=== PATIENT | female | born 1970 | race African-American/Black ===

== ENCOUNTER 2018-04-18 11:46 | Inpatient (IN) | payer OTHER ==
[2018-04-18] MEDS: ONDANSETRON (ODT) 4 MG TAB ODT (13:19)
[2018-04-18 13:23] LABS: URINE BLOOD (Dip) POC 3+ (NEGATIVE); URINE GLUCOSE (Dip) POC >=1.0% (NEGATIVE); URINE KETONES (Dip) POC Negative (NEGATIVE); URINE LEUKOCYTE EST (Dip) POC Negative (NEGATIVE); URINE NITRITE (Dip) POC Negative (NEGATIVE); URINE TOTAL PROTEIN POC Negative (NEGATIVE)
[2018-04-18 13:28] LABS: ADD MAN DIFF? NO
[2018-04-18 13:38] LABS: WHITE BLOOD COUNT 8.6 10^3/ul (4.8-10.8)
[2018-04-18 13:38] LABS: BASOPHILS % 0.2 % (0.0-2.0); EOSINOPHILS % 0.2 % (0.0-7.0); HEMATOCRIT 45.8 % (37.0-47.0); HEMOGLOBIN 15.5 g/dl (12.0-16.0); LYMPHOCYTES # 2.4 10^3/ul (0.8-2.9); LYMPHOCYTES % 28.3 % (15.0-51.0); MEAN CORPUSCULAR HEMOGLOBIN 27.7 pg (29.0-33.0); MEAN CORPUSCULAR HGB CONC 33.8 g/dl (32.0-37.0); MEAN CORPUSCULAR VOLUME 81.8 fl (82.0-101.0); MEAN PLATELET VOLUME 11.2 fl (7.4-10.4); MONOCYTE # 0.3 10^3/ul (0.3-0.9); MONOCYTES % 3.4 % (0.0-11.0); NEUTROPHIL # 5.8 10^3/ul (1.6-7.5); NEUTROPHILS % 67.8 % (39.0-77.0); PLATELET COUNT 369 10^3/UL (140-415); RED CELL DISTRIBUTION WIDTH 12.9 % (11.5-14.5)
[2018-04-18 13:56] LABS: ALANINE AMINOTRANSFERASE 111 IU/L (13-69); ALBUMIN 4.6 g/dl (3.3-4.9); ALBUMIN/GLOBULIN RATIO 0.97; ALKALINE PHOSPHATASE 200 IU/L (42-121); ANION GAP 23 (8-16); ASPARTATE AMINO TRANSFERASE 70 IU/L (15-46); BILIRUBIN,INDIRECT 0.6 mg/dl (0-1.1); BILIRUBIN,TOTAL 0.6 mg/dl (0.2-1.3); BLOOD UREA NITROGEN 13 mg/dl (7-20); CALCIUM 10.9 mg/dl (8.4-10.2); CARBON DIOXIDE 28 mmol/L (21-31); CHLORIDE 91 mmol/L (97-110); CREATININE 1.03 mg/dl (0.44-1.00); LIPASE 112 U/L (23-300); POTASSIUM 5.3 mmol/L (3.5-5.1); SODIUM 137 mmol/L (135-144); TOTAL PROTEIN 9.3 g/dl (6.1-8.1)
[2018-04-18] MEDS: KETOROLAC 30 MG INJ IM (14:02)
[2018-04-18 14:11] LABS: GLUCOSE 902 mg/dl (70-220)
[2018-04-18] MEDS: SOD CHLORIDE 0.9% 1,000 ML IV ×3 (14:39→20:41)
[2018-04-18] MEDS: INSULIN LISPRO 100 UNIT/ML VIAL SC (16:28)
[2018-04-18 16:50] LABS: UR KETONES (Dip) NEGATIVE (NEGATIVE)
[2018-04-18 17:05] LABS: HEMOGLOBIN A1C 10.2 % (0-5.9)
[2018-04-18 17:07] LABS: ANION GAP 19 (8-16); BLOOD UREA NITROGEN 14 mg/dl (7-20); CALCIUM 9.9 mg/dl (8.4-10.2); CARBON DIOXIDE 29 mmol/L (21-31); CHLORIDE 95 mmol/L (97-110); CREATININE 1.04 mg/dl (0.44-1.00); SODIUM 137 mmol/L (135-144)
[2018-04-18 17:16] LABS: LACTIC ACID 3.5 mmol/L (0.5-2.0)
[2018-04-18 17:16] LABS: GLUCOSE 696 mg/dl (70-220)
[2018-04-18 17:25] LABS: AMYLASE 52 U/L (11-123); LIPASE 106 U/L (23-300); MAGNESIUM 2.1 mg/dl (1.7-2.5)
[2018-04-18 17:25] LABS: PHOSPHORUS 4.2 mg/dl (2.5-4.9)
[2018-04-18] MEDS: CEFEPIME 2GM/50 ML (PMX) 50 ML IVPB (17:34)
[2018-04-18 17:37] LABS: TROPONIN-I < 0.012 ng/ml (0.000-0.120)
[2018-04-18] MEDS: VANCOMYCIN 1 GM (PMX) 250 ML IVPB (17:53)
[2018-04-18] MEDS ORDERED: POTASSIUM CHLORIDE 40 MEQ in SOD CHLORIDE 0.9% 1,000 ML IV ×2 (18:01→18:45)
[2018-04-18] MEDS ORDERED: SODIUM CHLORIDE 23.4% 77 MEQ, POTASSIUM CHLORIDE 30 MEQ in DEXTROSE 10% 1,000 ML IV ×2 (18:01→18:45)
[2018-04-18] MEDS ORDERED: POTASSIUM CHLORIDE 30 MEQ in SOD CHLORIDE 0.9% 1,000 ML IV ×2 (18:01→18:45)
[2018-04-18] MEDS ORDERED: SODIUM CHLORIDE 23.4% 77 MEQ in DEXTROSE 10% 1,000 ML IV ×2 (18:01→18:45)
[2018-04-18] MEDS ORDERED: SODIUM CHLORIDE 23.4% 77 MEQ, POTASSIUM CHLORIDE 40 MEQ in DEXTROSE 10% 1,000 ML IV ×2 (18:01→18:45)
[2018-04-18] MEDS ORDERED: DEXTROSE 50% 50 ML SYRINGE IV ×4 (18:30→19:00)
[2018-04-18] MEDS ORDERED: INSULIN REGULAR, HUMAN 100 UNIT in SOD CHLORIDE 0.9% 100 ML IV ×2 (18:30→19:00)
[2018-04-18] MEDS ORDERED: SOD CHLORIDE 0.9% 1,000 ML IV (18:45)
[2018-04-18] MEDS ORDERED: LORAZEPAM 2 MG INJ IV (19:00)
[2018-04-18] MEDS ORDERED: MAGNESIUM HYDROXIDE 30ML CUP PO (19:00)
[2018-04-18] MEDS ORDERED: ALBUTEROL/IPRATROPIUM (NEB) 3 ML AMP HHN (19:00)
[2018-04-18] MEDS ORDERED: NACL 0.9% 3 ML SYG IV (19:00)
[2018-04-18] MEDS ORDERED: NA PHOSPHATE/BIPHOS 133 ML ENEMA PR (19:00)
[2018-04-18] MEDS: ACCU-CHEK XX ×5 (19:00→23:00)
[2018-04-18] MEDS ORDERED: DOCUSATE SODIUM 100 MG CAP PO (19:00)
[2018-04-18] MEDS ORDERED: ONDANSETRON 4 MG INJ IV (19:00)
[2018-04-18] MEDS ORDERED: NITROGLYCERIN (SL) 0.4 MG TAB SL (19:00)
[2018-04-18] MEDS ORDERED: hydrALAzine 20 MG INJ IV (19:00)
[2018-04-18] MEDS: NA BICARBONATE 8.4% 50 ML SYG IV (19:16)
[2018-04-18] MEDS: CA CHLORIDE 10% 10 ML SYRINGE IV (19:16)
[2018-04-18 20:32] LABS: AADO2 Arterial 14.2 mmHg (7.0-24.0); Allen Test ACCEPTAB; Arterial Base Excess 2.7 mmol/L (-3.0-3); Arterial Blood Gas Oxygen Sat 96.6 mmHG (95.0-98.0); Arterial COHb 0.6 % (0.0-3.0); Arterial Fraction of Oxyhgb 95.8 % (93.0-99.0); Arterial HCO3 26.9 mmol/L (22.0-26.0); Arterial MetHb 0.2 % (0.0-1.5); Arterial Total Hemglobin 14.3 g/dl (12.0-18.0); Arterial pCO2 40.1 mmhg (35-45); MODE ROOM AIR; Site Right Radial
[2018-04-18] MEDS: ALBUTEROL 0.5% (NEB) 2.5 MG/0.5 ML AMP INH (20:36)
[2018-04-18 20:56] LABS: ANION GAP 15 (8-16); BLOOD UREA NITROGEN 12 mg/dl (7-20); CALCIUM 9.2 mg/dl (8.4-10.2); CARBON DIOXIDE 30 mmol/L (21-31); CHLORIDE 98 mmol/L (97-110); CREATININE 0.85 mg/dl (0.44-1.00); PHOSPHORUS 3.8 mg/dl (2.5-4.9); POTASSIUM 4.7 mmol/L (3.5-5.1); SODIUM 138 mmol/L (135-144)
[2018-04-18 21:12] LABS: LACTIC ACID 3.3 mmol/L (0.5-2.0)
[2018-04-18 21:13] LABS: GLUCOSE 458 mg/dl (70-220)
[2018-04-18 21:28] LABS: MODE NASAL CANNULA; MetHgb Venous 0.5 %; Sample Type Blood venous; Site VENOUS LINE; Venous COHb 0.3 %; Venous Fraction OxyHgb 38.1 %; Venous Oxygen Sat 38.4 mmHG (55.0-75.0); Venous Total Hemglobin 13.7 g/dl
[2018-04-18] MEDS: ZOLPIDEM 5 MG TAB PO (22:04)
[2018-04-18 22:06] LABS: ANION GAP 14 (8-16); BLOOD UREA NITROGEN 11 mg/dl (7-20); CARBON DIOXIDE 28 mmol/L (21-31); CHLORIDE 101 mmol/L (97-110); CREATININE 0.87 mg/dl (0.44-1.00); GLUCOSE 393 mg/dl (70-220); PHOSPHORUS 3.8 mg/dl (2.5-4.9); POTASSIUM 4.4 mmol/L (3.5-5.1); SODIUM 139 mmol/L (135-144)
[2018-04-18] MEDS: LACTATED RINGER'S 900 ML IV (22:06)
[2018-04-18] MEDS: INSULIN REGULAR, HUMAN 100 UNIT/1 ML 3ML VIAL IVP (22:37)
[2018-04-18 23:08] LABS: MODE NASAL CANNULA; MetHgb Venous 0.2 %; Sample Type Blood venous; Site VENOUS LINE; Venous COHb 0.4 %; Venous Fraction OxyHgb 72.3 %; Venous Oxygen Sat 72.7 mmHG (55.0-75.0); Venous Total Hemglobin 12.9 g/dl
[2018-04-19 00:28] LABS: ANION GAP 13 (8-16); BLOOD UREA NITROGEN 9 mg/dl (7-20); CALCIUM 8.8 mg/dl (8.4-10.2); CARBON DIOXIDE 28 mmol/L (21-31); CHLORIDE 103 mmol/L (97-110); CREATININE 0.75 mg/dl (0.44-1.00); GLUCOSE 271 mg/dl (70-220); POTASSIUM 3.7 mmol/L (3.5-5.1); SODIUM 140 mmol/L (135-144)
[2018-04-19 00:29] LABS: LACTIC ACID 3.1 mmol/L (0.5-2.0)
[2018-04-19] MEDS: ACCU-CHEK XX ×7 (01:00→04:51)
[2018-04-19 01:38] LABS: MODE NASAL CANNULA; MetHgb Venous 0.2 %; Sample Type Blood venous; Site VENOUS LINE; Venous COHb 0.4 %; Venous Fraction OxyHgb 65.9 %; Venous Oxygen Sat 66.3 mmHG (55.0-75.0); Venous Total Hemglobin 13.2 g/dl
[2018-04-19] MEDS: ACETAMINOPHEN 325 MG TAB PO ×2 (01:53→21:22)
[2018-04-19] MEDS: INSULIN GLARGINE [LANTus] (100 UNITS/ML) SYG SC ×2 (03:02→08:38)
[2018-04-19] MEDS: SOD CHLORIDE 0.9% 1,000 ML IV ×6 (04:07→16:00)
[2018-04-19] MEDS: HEPARIN 5,000 UNIT/0.5 ML VIAL SC ×3 (04:07→21:34)
[2018-04-19] MEDS: morphine 2 MG INJ IV ×3 (04:33→17:45)
[2018-04-19 05:09] LABS: ADD MAN DIFF? NO
[2018-04-19 05:12] LABS: WHITE BLOOD COUNT 10.8 10^3/ul (4.8-10.8)
[2018-04-19 05:12] LABS: BASOPHILS % 0.3 % (0.0-2.0); EOSINOPHILS # 0.1 10^3/ul (0.0-0.5); EOSINOPHILS % 1.3 % (0.0-7.0); HEMATOCRIT 34.5 % (37.0-47.0); HEMOGLOBIN 11.8 g/dl (12.0-16.0); LYMPHOCYTES # 4.4 10^3/ul (0.8-2.9); LYMPHOCYTES % 40.5 % (15.0-51.0); MEAN CORPUSCULAR HEMOGLOBIN 28.2 pg (29.0-33.0); MEAN CORPUSCULAR HGB CONC 34.2 g/dl (32.0-37.0); MEAN CORPUSCULAR VOLUME 82.5 fl (82.0-101.0); MEAN PLATELET VOLUME 11.3 fl (7.4-10.4); MONOCYTE # 0.4 10^3/ul (0.3-0.9); MONOCYTES % 3.5 % (0.0-11.0); NEUTROPHIL # 5.8 10^3/ul (1.6-7.5); PLATELET COUNT 251 10^3/UL (140-415); RED BLOOD COUNT 4.18 10^6/ul (4.20-5.40); RED CELL DISTRIBUTION WIDTH 13.4 % (11.5-14.5)
[2018-04-19 05:31] LABS: CHOLESTEROL 160 mg/dl (100-200)
[2018-04-19 05:31] LABS: CHOL/HDL RATIO 5.5 RATIO; HDL CHOLESTEROL 29 mg/dl (34-88); LDL CHOLESTEROL,CALCULATED 72 mg/dl; TRIGLYCERIDES 295 mg/dl (0-149)
[2018-04-19] MEDS: PANTOPRAZOLE (EC) 40 MG TAB PO (05:33)
[2018-04-19 05:44] LABS: LACTIC ACID 2.6 mmol/L (0.5-2.0)
[2018-04-19 05:46] LABS: ANION GAP 13 (8-16); BLOOD UREA NITROGEN 9 mg/dl (7-20); CALCIUM 8.9 mg/dl (8.4-10.2); CARBON DIOXIDE 28 mmol/L (21-31); CHLORIDE 102 mmol/L (97-110); CREATININE 0.78 mg/dl (0.44-1.00); GLUCOSE 241 mg/dl (70-220); MAGNESIUM 1.8 mg/dl (1.7-2.5); POTASSIUM 3.9 mmol/L (3.5-5.1); SODIUM 139 mmol/L (135-144)
[2018-04-19] MEDS: INSULIN ASPART [NOVOLOG] 3 ML PEN SC ×6 (07:55→21:00)
[2018-04-19 08:39] LABS: HEMOGLOBIN A1C 10.2 % (0-5.9)
[2018-04-19 09:45] LABS: ANION GAP 11 (8-16); BLOOD UREA NITROGEN 8 mg/dl (7-20); CALCIUM 8.5 mg/dl (8.4-10.2); CARBON DIOXIDE 29 mmol/L (21-31); CHLORIDE 104 mmol/L (97-110); CREATININE 0.77 mg/dl (0.44-1.00); GLUCOSE 216 mg/dl (70-220); MAGNESIUM 1.6 mg/dl (1.7-2.5); PHOSPHORUS 3.5 mg/dl (2.5-4.9); POTASSIUM 3.5 mmol/L (3.5-5.1); SODIUM 140 mmol/L (135-144)
[2018-04-19 09:49] LABS: LACTIC ACID 1.5 mmol/L (0.5-2.0)
[2018-04-19] MEDS: MAGNESIUM SULFATE 2 GM/50 ML 50 ML IVPB (12:29)
[2018-04-19] MEDS: POTASSIUM CHLORIDE 100 ML IVPB ×2 (14:01→16:03)
[2018-04-19 15:31] LABS: LACTIC ACID 1.3 mmol/L (0.5-2.0)
[2018-04-19 18:49] LABS: LACTIC ACID 1.5 mmol/L (0.5-2.0)
[2018-04-19] MEDS: ZOLPIDEM 5 MG TAB PO (21:22)
[2018-04-20] MEDS: SOD CHLORIDE 0.9% 1,000 ML IV ×3 (00:26→15:39)
[2018-04-20] MEDS: ACETAMINOPHEN 325 MG TAB PO (01:20)
[2018-04-20] MEDS: ACCU-CHEK XX (02:00)
[2018-04-20] MEDS: HYDROCODONE/APAP (5/325) TAB PO ×2 (02:45→15:38)
[2018-04-20] MEDS: PANTOPRAZOLE (EC) 40 MG TAB PO (06:00)
[2018-04-20 07:16] LABS: ADD MAN DIFF? NO
[2018-04-20 07:23] LABS: BASOPHILS % 0.3 % (0.0-2.0); EOSINOPHILS # 0.1 10^3/ul (0.0-0.5); EOSINOPHILS % 0.8 % (0.0-7.0); HEMATOCRIT 36.2 % (37.0-47.0); LYMPHOCYTES # 3.2 10^3/ul (0.8-2.9); LYMPHOCYTES % 52.6 % (15.0-51.0); MEAN CORPUSCULAR HEMOGLOBIN 27.3 pg (29.0-33.0); MEAN CORPUSCULAR HGB CONC 33.1 g/dl (32.0-37.0); MEAN CORPUSCULAR VOLUME 82.3 fl (82.0-101.0); MEAN PLATELET VOLUME 11.2 fl (7.4-10.4); MONOCYTE # 0.3 10^3/ul (0.3-0.9); MONOCYTES % 4.8 % (0.0-11.0); NEUTROPHIL # 2.5 10^3/ul (1.6-7.5); NEUTROPHILS % 41.3 % (39.0-77.0); PLATELET COUNT 260 10^3/UL (140-415); RED CELL DISTRIBUTION WIDTH 13.2 % (11.5-14.5)
[2018-04-20 07:50] LABS: ANION GAP 13 (8-16); BLOOD UREA NITROGEN 6 mg/dl (7-20); CALCIUM 8.8 mg/dl (8.4-10.2); CARBON DIOXIDE 25 mmol/L (21-31); CHLORIDE 104 mmol/L (97-110); CREATININE 0.63 mg/dl (0.44-1.00); GLUCOSE 218 mg/dl (70-220); POTASSIUM 3.8 mmol/L (3.5-5.1); SODIUM 138 mmol/L (135-144)
[2018-04-20] MEDS: INSULIN GLARGINE [LANTus] (100 UNITS/ML) SYG SC (08:32)
[2018-04-20] MEDS: HEPARIN 5,000 UNIT/0.5 ML VIAL SC ×2 (08:32→21:10)
[2018-04-20] MEDS: INSULIN ASPART [NOVOLOG] 3 ML PEN SC ×7 (08:32→21:09)
[2018-04-20 15:20] LABS: LIPASE 208 U/L (23-300)
[2018-04-20 15:31] LABS: TROPONIN-I < 0.012 ng/ml (0.000-0.120)
[2018-04-20] MEDS: ZOLPIDEM 5 MG TAB PO (21:11)
[2018-04-21] MEDS: HYDROCODONE/APAP (5/325) TAB PO (00:56)
[2018-04-21] MEDS: SOD CHLORIDE 0.9% 1,000 ML IV ×3 (02:04→16:37)
[2018-04-21] MEDS: ACCU-CHEK XX (02:05)
[2018-04-21] MEDS: PANTOPRAZOLE (EC) 40 MG TAB PO (06:47)
[2018-04-21 07:03] LABS: ADD MAN DIFF? NO
[2018-04-21 07:06] LABS: BASOPHILS % 0.3 % (0.0-2.0); EOSINOPHILS % 0.6 % (0.0-7.0); HEMATOCRIT 35.9 % (37.0-47.0); HEMOGLOBIN 12.2 g/dl (12.0-16.0); LYMPHOCYTES # 3.4 10^3/ul (0.8-2.9); LYMPHOCYTES % 51.1 % (15.0-51.0); MEAN CORPUSCULAR HEMOGLOBIN 27.8 pg (29.0-33.0); MEAN CORPUSCULAR VOLUME 81.8 fl (82.0-101.0); MEAN PLATELET VOLUME 11.4 fl (7.4-10.4); MONOCYTE # 0.4 10^3/ul (0.3-0.9); MONOCYTES % 5.2 % (0.0-11.0); NEUTROPHIL # 2.9 10^3/ul (1.6-7.5); NEUTROPHILS % 42.7 % (39.0-77.0); PLATELET COUNT 277 10^3/UL (140-415); RED BLOOD COUNT 4.39 10^6/ul (4.20-5.40); RED CELL DISTRIBUTION WIDTH 13.4 % (11.5-14.5)
[2018-04-21 07:06] LABS: WHITE BLOOD COUNT 6.7 10^3/ul (4.8-10.8)
[2018-04-21 07:57] LABS: ANION GAP 11 (8-16); BLOOD UREA NITROGEN 8 mg/dl (7-20); CALCIUM 8.9 mg/dl (8.4-10.2); CARBON DIOXIDE 25 mmol/L (21-31); CHLORIDE 107 mmol/L (97-110); CREATININE 0.65 mg/dl (0.44-1.00); GLUCOSE 212 mg/dl (70-220); POTASSIUM 3.9 mmol/L (3.5-5.1); SODIUM 139 mmol/L (135-144)
[2018-04-21] MEDS: INSULIN ASPART [NOVOLOG] 3 ML PEN SC ×6 (08:03→17:34)
[2018-04-21] MEDS: INSULIN GLARGINE [LANTus] (100 UNITS/ML) SYG SC (08:40)
[2018-04-21] MEDS: HEPARIN 5,000 UNIT/0.5 ML VIAL SC (08:41)
== END 2018-04-21 20:23 | disposition home or self-care (01) | DRG 638 ==
LOC: TEL 04-20 16:43 → FTE 11:46
DX: E11.10 Type 2 diabetes mellitus with ketoacidosis without coma (principal); E87.2 Acidosis; E87.5 Hyperkalemia; R10.84 Generalized abdominal pain; E11.65 Type 2 diabetes mellitus with hyperglycemia; M25.512 Pain in left shoulder; Z79.4 Long term (current) use of insulin
CPT/HCPCS: 36415; 36600; 71045; 73030; 80048; 80053; 80061; 81003; 81005; 81025; 82150; 82803; 82962; 83036; 83605; 83690; 83735; 84100; 84439; 84443; 84484; 85025; 87040; 87086; 93005; 94644; 96372; 96374; 96375; 99291-25